=== PATIENT | female | born 1995 | race Caucasian/White ===

== ENCOUNTER 2021-04-17 11:08 | Emergency (ER) | payer BC ==
[~2021-04-17] VITALS: Ht 162.6 cm; Wt 55.5 kg
[2021-04-17 12:15] LABS: BASO # 0.1 K/mm3 (0.0-0.2); BASO % 0.7 % (0.0-2.0); EOS % 0.1 % (0-4.0); GRAN # 6.6 K/mm3 (1.4-6.5); GRAN % 72.5 % (42.2-75.2); HEMATOCRIT 41.2 % (37.0-47.0); HEMOGLOBIN 13.7 g/dl (12.5-16.0); LYMPH # 1.9 K/mm3 (1.2-3.4); LYMPH % 21.5 % (20.0-51.0); MEAN CELL VOLUME 96 fl (80.0-100.0); MEAN CORPUSCULAR HEMOGLOBIN 32 pg (27.0-31.0); MEAN CORPUSCULAR HGB CONC 33 g/dl (33.0-37.0); MEAN PLATELET VOLUME 9.9 fl (7.4-10.4); MONO # 0.4 K/mm3 (0.1-0.6); MONO % 4.9 % (1.7-9.3); PLATELET COUNT 283 K/mm3 (130-400); RED BLOOD COUNT 4.31 M/mm3 (4.10-5.30); REDCELL DISTRIBUTION WIDTH-CV 12.5 % (11.5-14.5)
[2021-04-17 12:30] LABS: ALBUMIN 4.8 gm/dL (3.5-5.0); BILIRUBIN,TOTAL 0.5 mg/dL (0.2-1.2); C-REACTIVE PROTEIN 0.02 mg/dL (0.00-0.50); CALCIUM 10.1 mg/dL (8.4-10.2); CREATININE, serum 0.9 mg/dL (0.57-1.11); POTASSIUM 4.2 mmol/L (3.5-4.5); TOTAL PROTEIN 7.8 gm/dL (6.2-8.1)
[2021-04-17 15:20] LABS: COLLECTION METHOD CLEAN CATCH
[2021-04-17 15:43] LABS: MUCOUS Present /lpf; PH 5 (5-8); SQUAMOUS EPITHELIAL 0-2 /hpf; URINE APPEARANCE Clear; URINE BACTERIA None Seen /hpf; URINE BILIRUBIN Negative (NEGATIVE); URINE BLOOD Negative (NEGATIVE); URINE COLOR Yellow; URINE GLUCOSE Negative (NEGATIVE); URINE KETONE 2+ (NEGATIVE); URINE LEUKOCYTE ESTERASE Negative (NEGATIVE); URINE NITRATE Negative (NEGATIVE); URINE PROTEIN(semi-quant) Negative (NEGATIVE); URINE RBC 0-2 /hpf; URINE UROBILINOGEN Negative (NEGATIVE)
[2021-04-17] MEDS ORDERED: ZOFRAN ODT4 MG PO (16:21)
[2021-04-17 17:30] VITALS: BP 95/64; PULSE 81; TEMP 98.2
== END 2021-04-17 17:11 | disposition home or self-care (01) ==
LOC: COL.ER 11:08
PROVIDERS: Nurse Practitioner
DX: F32.A Depression, unspecified (principal); R11.2 Nausea with vomiting, unspecified; Z32.02 Encounter for pregnancy test, result negative
CPT/HCPCS: J2060; J2405; J2550; J7030

== ENCOUNTER 2022-03-01 09:28 | Emergency (ER) | payer BC ==
[~2022-03-01] VITALS: Ht 162.6 cm; Wt 59.1 kg
[~2022-03-01 09:28] MED LIST: ZOFRAN ODT4 MG PO
[2022-03-01 09:35] VITALS: BP 120/72; PULSE 89; TEMP 98.5
[2022-03-01 09:54] LABS: COLLECTION METHOD CLEAN CATCH
[2022-03-01 10:05] LABS: BUDDING YEAST Present (NOT PRESENT); SQUAMOUS EPITHELIAL None Seen /hpf (0-10); URINE BACTERIA None Seen /hpf (NONE SEEN); URINE RBC 0-2 /hpf (0-2)
[2022-03-01 10:22] LABS: URINE APPEARANCE Clear (CLEAR/HAZY); URINE COLOR Yellow (YELLOW)
[2022-03-01 10:32] LABS: PH 6.5 (5.0-8.5); URINE GLUCOSE Negative (NEGATIVE); URINE PROTEIN(semi-quant) Negative (NEGATIVE)
[2022-03-01 10:33] LABS: URINE KETONE Negative (NEGATIVE)
[2022-03-01 10:37] LABS: URINE UROBILINOGEN 0.2 E.U/dL (0.2-1.0)
[2022-03-01 10:38] LABS: URINE BLOOD TRACE-LYSED (NEGATIVE); URINE NITRATE Negative (NEGATIVE)
[2022-03-01] MEDS ORDERED: BACTRIM DS 8001 TAB PO (10:47)
== END 2022-03-01 11:18 | disposition home or self-care (01) ==
LOC: COL.ER 09:28
PROVIDERS: Emergency Medicine
DX: N12 Tubulo-interstitial nephritis, not specified as acute or chronic (principal); Z32.02 Encounter for pregnancy test, result negative